=== PATIENT | female | born 1975 | race Caucasian/White ===

== ENCOUNTER 2016-06-13 17:54 | Inpatient (IN) | payer OTHER ==
[2016-06-13 19:14] LABS: BASO % 0.6 % (0.0-2.0); EOS # 0.1 K/uL (0.0-0.7); EOS % 1.8 % (0.0-4.0); LYMPH # 1.6 K/uL (1.0-4.3); LYMPH % 25.9 % (20.0-40.0); MEAN CORPUSCULAR HEMOGLOBIN 21.6 pg (27.0-31.0); MEAN CORPUSCULAR HGB CONC 30.9 g/dL (33.0-37.0); MEAN PLATELET VOLUME 8.3 fl (7.2-11.7); MONO # 0.5 K/uL (0.0-0.8); MONO % 8.2 % (0.0-10.0); NEUT # 3.8 K/uL (1.8-7.0); NEUT % 63.5 % (50.0-75.0); RED CELL DISTRIBUTION WIDTH 16.2 % (11.5-14.5)
[2016-06-13 19:29] LABS: PARTIAL THROMBOPLASTIN TIME 25.3 SECONDS (23.3-32.5)
[2016-06-13 19:30] LABS: ALKALINE PHOSPHATASE 82 U/L (38-126); ALT/SGPT 39 U/L (9-52); AST/SGOT 32 U/L (14-36); BILIRUBIN,TOTAL 0.4 mg/dl (0.2-1.3); BLOOD UREA NITROGEN 9 mg/dl (7-17); CALCIUM 9.4 mg/dL (8.4-10.2); CARBON DIOXIDE 23 mmol/L (22-30); CHLORIDE 106 mmol/L (98-107); CHOLESTEROL 130 mg/dL (0-199); GFR AFRICAN-AMERICAN > 60; GLUCOSE,RANDOM 96 mg/dL (65-105); POTASSIUM 4.1 MMOL/L (3.6-5.0); SODIUM 142 mmol/l (132-148); TOTAL PROTEIN 7.9 G/DL (6.3-8.2)
--- NOTE | 2016-06-13 20:07 | ED PDOC ---
HPI: Headache Time Seen by Provider: 06/13/16 18:14 Chief Complaint (Nursing): Weakness/Neurological Deficit Chief Complaint (Provider): Headache, weakness History Per: Patient History/Exam Limitations: no limitations Onset/Duration Of Symptoms: Days Current Symptoms Are (Timing): Still Present Severity: Moderate Quality: "Pain" Associated Symptoms: Extremity Weakness Additional History Per: Patient Additional Complaint(s): The pt is a 41yo female with PMHx of C-Sections, presents to the ED for evaluation of right sided headache, mostly present behind her right eye since last night. Pt reports associated numbness to face, pain in right forearm and tingling in all four extremities. Pt denies any visual changes, neck stiffness, loss of consciousness. At present, she offers no additional medical complaints. NIHSS Stroke Scale - Date/Time Evaluation Performed Date Performed: 06/13/16 Time Performed: 18:50 When Was NIHSS Performed: Baseline - How Severe is the Stroke Level of Consciousness: 0=Alert LOC to Questions: 0=Both comments correct LOC to commands: 0=Obeys both correctly Best Gaze: 0=Normal Visual: 0=No visual loss Facial: 0=Normal Motor Arm - Left: 0=No drift Motor Arm - Right: 0=No drift Motor Leg - Left: 0=No drift Motor Leg - Right: 0=No drift Limb Ataxia: 0=Absent Sensory: 1=Mild to moderate loss Best Language: 0=No aphasia Dysarthia: 0=Normal articulation Extinction & Inattention (Neglect): 0=Normal, no object Score: 1 Past Medical History Reviewed: Historical Data, Nursing Documentation, Vital Signs Vital Signs: Last Vital Signs Temp 99.8 F H 06/13/16 18:05 Pulse 88 06/13/16 18:05 Resp 20 06/13/16 18:05 BP 162/99 H 06/13/16 18:05 Pulse Ox 99 06/13/16 18:05 - Medical History PMH: No Chronic Diseases, Gastritis Denies: Chronic Kidney Disease - Family History Family History: States: Unknown Family Hx - Living Arrangements Living Arrangements: With Family - Social History Current smoker - smoking cessation education provided: No Alcohol: None Drugs: Denies - Home Medications Home Medications: Ambulatory Orders Medication Instructions Recorded Omeprazole 40 mg PO DAILY 11/02/15 Naproxen [Naprosyn] 500 mg PO Q12H #20 tab 11/14/15 - Allergies Allergies/Adverse Reactions: Allergies Allergy/AdvReac Type Severity Reaction Status Date / Time morphine Allergy SHORTNESS Verified 11/01/15 18:02 OF BREATH Review of Systems ROS Statement: Except As Marked, All Systems Reviewed And Found Negative Eyes: Negative for: Vision Change ENT: Positive for: Other (numbness to face, no neck stiffness) Neurological: Positive for: Weakness, Headache, Other (tingling all 4 extremities, no LOC) Physical Exam - Reviewed Nursing Documentation Reviewed: Yes Vital Signs Reviewed: Yes - Physical Exam Appears: Positive for: Well, Non-toxic, No Acute Distress Head Exam: Positive for: ATRAUMATIC, NORMAL INSPECTION, NORMOCEPHALIC Skin: Positive for: Normal Color, Warm, DRY Eye Exam: Positive for: Normal appearance, EOMI, PERRL Neck: Positive for: Normal, Supple Cardiovascular/Chest: Positive for: Regular Rate, Rhythm Respiratory: Positive for: Normal Breath Sounds. Negative for: Respiratory Distress Gastrointestinal/Abdominal: Positive for: Normal Exam Extremity: Positive for: Other (muscle strength 4/5 in distal right upper extremity) Neurologic/Psych: Positive for: Alert, Oriented, Other (decreased sensation right side of face. tongue midline). Negative for: Facial Droop - Laboratory Results Result Diagrams: 06/13/16 19:00 06/13/16 19:00 - ECG O2 Sat by Pulse Oximetry: 99 (RA) Pulse Ox Interpretation: Normal Medical Decision Making Medical Decision Making: Time: 1829 Impression: Atypical migraine, headache, CVA paresthesias Plan: -- CT Head -- Bloodwork -- CXR --Reassess Scribe Attestation: Documented by Eneida Frank acting as a scribe for Maryam Varghese MD. Provider Attestation: All medical record entries made by the Scribe were at my direction and personally dictated by me. I have reviewed the chart and agree that the record accurately reflects my personal performance of the history, physical exam, medical decision making, and the department course for this patient. I have also personally directed, reviewed, and agree with the discharge instructions and disposition. Disposition - Clinical Impression Clinical Impression: CVA (cerebral vascular accident) - Patient ED Disposition Is Patient to be Admitted: Yes - Disposition Disposition Time: 21:43 Condition: STABLE - Pt Status Changed To: Hospital Disposition Of: Inpatient - Admit Certification Admit to Inpatient:: After my assessment, the patient will require hospitalization for at least two midnights. This is because of the severity of symptoms shown, intensity of services needed, and/or the medical risk in this patient being treated as an outpatient. - POA Present On Arrival: None rTPA Inclusion/Exclusion - Refusal of Treatment Patient Refused Treatment: No - Inclusion Criteria for Altepase Patient is 18 years or Older: Yes Clinical DX Ischemic Stroke Cause Neurological Deficit: No Time of Onset Established Less Than 270 Mins Before TX Begin: No Risk/Benefit Discussed With Patient/Family Member Present: No
--- NOTE | 2016-06-13 21:20 | CT ---
EXAM: CT Head Without Intravenous Contrast CLINICAL HISTORY: 41 years old, female; Pain; Headache; Tension; Additional info: R sided RICHARD, r distal arm weakness, paresthesias TECHNIQUE: Axial computed tomography images of the head/brain without intravenous contrast. This CT exam was performed using one or more of the following dose reduction techniques: automated exposure control, adjustment of the mA and/or kV according to patient size, and/or use of iterative reconstruction technique. Coronal and sagittal reformatted images were created and reviewed. COMPARISON: CT - HEAD W/O CONTRAST 01/06/2015 10:53:53 PM FINDINGS: Brain: No intracranial hemorrhage. No mass. No definite edema. Ventricles: No hydrocephalus. Bones/joints: No acute fracture. Soft tissues: Unremarkable. Sinuses: No acute sinusitis. Mastoid air cells: No mastoid effusion. Orbits: Unremarkable as visualized. IMPRESSION: 1. No definite acute intracranial abnormality. Acute infarction may be CT occult within first 24 hours. If a focal deficit persists, consider followup CT or MRI for further evaluation. 2. Incidental/non-acute findings are described above.
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
[2016-06-14 00:30] LABS: THYROID STIMULATING HORMONE 2.68 mIU/ML (0.46-4.68)
--- NOTE | 2016-06-14 07:37 | CARD ---
APPROVED REPORT EKG Measurement Heart [id number] <Conclusion> Normal sinus rhythm Normal ECG
[2016-06-14] MEDS: Enoxaparin 40 mg Syringe SC SCH (08:07)
--- NOTE | 2016-06-14 08:53 | RAD ---
HISTORY: Headache. Portable study 19:05. COMPARISON: 03/15/2014. FINDINGS: LUNGS: No active pulmonary disease. PLEURA: No significant pleural effusion identified, no pneumothorax apparent. CARDIOVASCULAR: Normal. OSSEOUS STRUCTURES: No significant abnormalities. VISUALIZED UPPER ABDOMEN: Normal. OTHER FINDINGS: None. IMPRESSION: No active disease. No significant interval change compared to the prior examination(s).
--- NOTE | 2016-06-14 11:19 | CP.PCM.PN ---
Subjective - Date & Time of Evaluation Date of Evaluation: 06/14/16 Time of Evaluation: 07:35 - Subjective Subjective: The patient is a 41 y/o woman w/ no PMH, presented with right sided headache, mostly present behind her right eye since last night prior to admission. The patient was seen this morning. There are no acute events overnight. The patient is not in acute distress. The patient reports that she feels much better compared to yesterday. The patient states she has no headache currently ; however, she still has mild paresthesia of the right face and some right- sided weakness. The patient reports that her strength is better as well. The patient denies dizziness, chest pain, dyspnea, abdominal pain, nausea, vomiting , diarrhea, dysuria, and fevers. Patient reports her last period was 05/18/2016 , is regular at every 4 weeks, lasts 4 days, bleeds for the first 2 days and no heavy bleeding. In addition, the patient reports that her mother had cervical cancer in her 30s but has been cured of it. Objective - Vital Signs/Intake and Output Vital Signs (last 24 hours): Temp Pulse Resp BP Pulse Ox 98.2 F 74 20 121/78 99 06/14/16 08:18 06/14/16 09:00 06/14/16 08:18 06/14/16 08:18 06/14/16 08:18 - Medications Medications: Current Medications Acetaminophen (Tylenol 325mg Tab) 650 mg PO Q6 PRN PRN Reason: Headache Atorvastatin Calcium (Lipitor) 40 mg PO DAILY [facility] Last Admin: 06/14/16 08:07 Dose: 40 mg Enoxaparin Sodium (Lovenox) 40 mg SC DAILY [facility] PRN Reason: Protocol Last Admin: 06/14/16 08:07 Dose: 40 mg - Labs Labs: PT 11.3 SECONDS (9.6-11.2) H 06/13/16 19:00 INR 1.09 (0.92-1.08) H 06/13/16 19:00 APTT 25.3 SECONDS (23.3-32.5) 06/13/16 19:00 - Constitutional Appears: No Acute Distress - Head Exam Head Exam: ATRAUMATIC, NORMOCEPHALIC - Eye Exam Eye Exam: EOMI Pupil Exam: PERRL - ENT Exam ENT Exam: Mucous Membranes Moist - Respiratory Exam Respiratory Exam: Clear to Ausculation Bilateral. absent: Accessory Muscle Use , Chest Wall Tenderness, Decreased Breath Sounds, Prolonged Expiratory Phase, Rales, Rhonchi, Wheezes, Respiratory Distress, Stridor - Cardiovascular Exam Cardiovascular Exam: REGULAR RHYTHM. absent: Tachycardia - GI/Abdominal Exam GI & Abdominal Exam: Soft, Normal Bowel Sounds. absent: Distended, Tenderness - Extremities Exam Extremities Exam: absent: Calf Tenderness, Tenderness - Neurological Exam Neurological Exam: Alert, Awake, CN II-XII Intact, Oriented x3 Neuro motor strength exam: Left Upper Extremity: 5, Right Upper Extremity: 4, Left Lower Extremity: 5, Right Lower Extremity: 4 Additional comments: Mild paresthesia of the right face from maxillary to mandibular area Negative Romberg Steady, smooth, uninterrupted, unassisted gait - Skin Skin Exam: Dry, Intact, Normal Color, Warm Assessment and Plan - Assessment and Plan (Free Text) Assessment: The patient is a 41 y/o woman w/ no PMH, presented with right sided headache, mostly present behind her right eye since last night prior to admission Plan: 1. Right Sided Headache - atypical migraine vs. CVA vs. MS - PE: patient has right sided facial parasthesias and right UE weakness - ED Course: CT Head, CBC, CMP, coags, Lipid panel, Troponins, CXR - CT head: no acute intracranial abnormality - Aspirin 325 mg PO, statin per stroke protocol - Tylenol 650 mg PO Q6h prn for headache - Swallow screen passed - Neuro consulted: Dr Fallon - Neuro checks Q8h - PT/OT ordered - TSH: 2.68 - Vit B12: 371 - Follow up Folate, RPR to rule out other neurological causes - Follow up MRI brain w/wo contrast 2. Anemia - most likely secondary to iron deficiency - Hb 9.9 - microcytic, hypochromic, with increased RDW - patient has regular periods and no menorrhagia - follow up iron, TIBC, ferritin, trasnferrin - follow up stool occult blood 3. Prophylaxis - DVT: lovenox 40 mg SC daily
[2016-06-14] MEDS ORDERED: Gadodiamide 287 MG/ML VIAL (15ML) IV ONE (14:48)
--- NOTE | 2016-06-14 16:24 | MRI ---
PROCEDURE: MRI BRAIN WITH AND WITHOUT CONTRAST HISTORY: Right sided headache/R side numbness/weakness COMPARISON: Noncontrast head CT from 06/13/2016 TECHNIQUE: Multiplanar, multisequence MR images of the brain were obtained with and without intravenous contrast enhancement. 13 cc Omniscan was injected intravenously. FINDINGS: HEMORRHAGE: None DWI: No evidence of an acute or early subacute infarction. BRAIN PARENCHYMA: There are tiny scattered T2/FLAIR hyperintense foci in the subcortical supratentorial white matter. Maurice-white matter differentiation is preserved. There is no mass, mass effect or abnormal extra-axial fluid collection. There is a partially empty sella. Otherwise, the midline sagittal structures are normal. ENHANCEMENT: No abnormal parenchymal or leptomeningeal enhancement. VENTRICLES: The ventricles are normal in size, shape and configuration.. CRANIUM: There is normal bone marrow signal pattern. ORBITS: Grossly unremarkable. PARANASAL SINUSES/MASTOIDS: Clear VASCULAR SYSTEM: There are normal signal voids in the larger intracranial arteries. OTHER FINDINGS: None . IMPRESSION: 1. No acute intracranial abnormality. Specifically, no evidence of acute infarction or active demyelination. 2. Minimal supratentorial subcortical white matter changes are strictly nonspecific, the differential considerations include migraine headache effect, gliosis, vasculitis, Lyme disease and demyelinating disease including multiple sclerosis. Clinical follow-up is advised.
[2016-06-14 16:59] LABS: FOLATE 11.8 ng/mL
[2016-06-15 00:09] VITALS: RESP 20
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
[2016-06-15 07:24] LABS: HEMATOCRIT 31.3 % (34.0-47.0); MEAN CELL VOLUME 69.3 fl (81.0-99.0); MEAN CORPUSCULAR HEMOGLOBIN 22.1 pg (27.0-31.0); MEAN CORPUSCULAR HGB CONC 31.9 g/dL (33.0-37.0); RED CELL DISTRIBUTION WIDTH 16.2 % (11.5-14.5)
[2016-06-15 07:58] VITALS: BP 106/71; PULSE 77; TEMP 98.5; O2SAT 99
[2016-06-15 08:26] LABS: IRON 90 ug/dL (37-170)
--- NOTE | 2016-06-15 08:43 | CP.PCM.PN ---
Subjective - Date & Time of Evaluation Date of Evaluation: 06/15/16 Time of Evaluation: 08:00 - Subjective Subjective: The patient is a 41 y/o woman w/ no PMH, presented with right sided headache, mostly present behind her right eye since last night prior to admission. The patient was seen this morning. There are no acute events overnight. The patient is not in acute distress. The patient reports that she feels even better compared to yesterday. The patient states she has no headache currently. The patient reported mild nausea and headache after the MRI which resolved shortly on its own. The patient reports that her strength continues to improve as well. The patient denies dizziness, chest pain, dyspnea, abdominal pain, nausea, vomiting, diarrhea, dysuria, and fevers. The patient was seen by physical therapy yesterday. The patient states that she can ambulate normally but is taking it slow. Objective - Vital Signs/Intake and Output Vital Signs (last 24 hours): Temp Pulse Resp BP Pulse Ox 98.5 F 77 20 106/71 99 06/15/16 07:57 06/15/16 07:57 06/15/16 07:57 06/15/16 07:57 06/15/16 07:57 - Medications Medications: Current Medications Acetaminophen (Tylenol 325mg Tab) 650 mg PO Q6 PRN PRN Reason: Headache Atorvastatin Calcium (Lipitor) 40 mg PO DAILY [facility] Last Admin: 06/14/16 08:07 Dose: 40 mg Cholecalciferol (Vitamin D) 2,000 iu PO DAILY [facility] Enoxaparin Sodium (Lovenox) 40 mg SC DAILY [facility] PRN Reason: Protocol Last Admin: 06/14/16 08:07 Dose: 40 mg - Labs Labs: 06/15/16 05:00 PT 11.3 SECONDS (9.6-11.2) H 06/13/16 19:00 INR 1.09 (0.92-1.08) H 06/13/16 19:00 APTT 25.3 SECONDS (23.3-32.5) 06/13/16 19:00 - Constitutional Appears: No Acute Distress - Head Exam Head Exam: ATRAUMATIC, NORMOCEPHALIC - Eye Exam Eye Exam: EOMI Pupil Exam: PERRL - ENT Exam ENT Exam: Mucous Membranes Moist - Respiratory Exam Respiratory Exam: Clear to Ausculation Bilateral. absent: Accessory Muscle Use , Chest Wall Tenderness, Decreased Breath Sounds, Prolonged Expiratory Phase, Rales, Rhonchi, Wheezes, Respiratory Distress, Stridor - Cardiovascular Exam Cardiovascular Exam: REGULAR RHYTHM. absent: Tachycardia - GI/Abdominal Exam GI & Abdominal Exam: Soft, Normal Bowel Sounds. absent: Distended, Tenderness - Extremities Exam Extremities Exam: absent: Calf Tenderness, Tenderness - Neurological Exam Neurological Exam: Alert, Awake, Oriented x3 Neuro motor strength exam: Left Upper Extremity: 5, Right Upper Extremity: 5, Left Lower Extremity: 5, Right Lower Extremity: 5 Additional comments: muscle strength +5 bilaterally sensation to face equal bilaterally - Skin Skin Exam: Dry, Intact, Normal Color, Warm Assessment and Plan - Assessment and Plan (Free Text) Assessment: The patient is a 41 y/o woman w/ no PMH, presented with right sided headache, mostly present behind her right eye since last night prior to admission Plan: 1. Right Sided Headache - atypical migraine vs. CVA vs. MS - PE: patient has right sided facial parasthesias and right UE weakness - ED Course: CT Head, CBC, CMP, coags, Lipid panel, Troponins, CXR - CT head: no acute intracranial abnormality - MRI brain w/wo contrast: no acute disease processes; minimal supratentorial subcortical white matter changes nonspecific, differentials include migraine headache effect, gliosis, vasculitis, Lyme disease and demyelinating disease including multiple sclerosis - Aspirin 325 mg PO, statin per stroke protocol - Tylenol 650 mg PO Q6h prn for headache - Swallow screen passed - Neuro consulted: Dr Fallon - Neuro checks Q8h - seen by PT yesterday - TSH: 2.68 - Vit B12: 371 - Folate: 11.8 - RPR: negative 2. Anemia - most likely secondary to iron deficiency - Hb 10.0 - microcytic, hypochromic, with increased RDW - patient has regular periods and no menorrhagia - iron: 90 - TIBC: 385 - ferritin: 5.3 - transferrin: 23% - follow up stool occult blood 3. Prophylaxis - DVT: lovenox 40 mg SC daily
[2016-06-15] MEDS: Enoxaparin 40 mg Syringe SC SCH (09:05)
[2016-06-15 09:29] LABS: URINE BILIRUBIN NEGATIVE (NEGATIVE); URINE BLOOD NEGATIVE (NEGATIVE); URINE COLOR YELLOW (YELLOW); URINE GLUCOSE (UA) NEG (Normal); URINE KETONE NEGATIVE (NEGATIVE); URINE LEUKOCYTE ESTERASE NEG Leu/uL (Negative); URINE PROTEIN NEGATIVE (NEGATIVE); URINE UROBILINOGEN 0.2-1.0 mg/dL (0.2-1.0)
--- NOTE | 2016-06-15 10:37 | CP.PCM.DIS ---
Provider - Provider Date of Admission: 06/13/16 21:42 Attending physician: Matilda Palmer MD Time Spent in preparation of Discharge (in minutes): 30 Diagnosis - Discharge Diagnosis (1) Migraine headache Status: Acute (2) Facial paresthesia Status: Acute (3) Intermittent paresthesia of right hand and foot Status: Acute Hospital Course - Lab Results Lab Results: Most Recent Lab Values WBC 6.0 K/uL (4.8-10.8) 06/15/16 05:00 RBC 4.51 Mil/uL (3.80-5.20) 06/15/16 05:00 Hgb 10.0 g/dL (12.0-16.0) L 06/15/16 05:00 Hct 31.3 % (34.0-47.0) L 06/15/16 05:00 MCV 69.3 fl (81.0-99.0) L 06/15/16 05:00 MCH 22.1 pg (27.0-31.0) L 06/15/16 05:00 MCHC 31.9 g/dL (33.0-37.0) L 06/15/16 05:00 RDW 16.2 % (11.5-14.5) H 06/15/16 05:00 Plt Count 263 K/uL (130-400) 06/15/16 05:00 MPV 8.3 fl (7.2-11.7) 06/13/16 19:00 Neut % (Auto) 63.5 % (50.0-75.0) 06/13/16 19:00 Lymph % (Auto) 25.9 % (20.0-40.0) 06/13/16 19:00 [place] % (Auto) 8.2 % (0.0-10.0) 06/13/16 19:00 Eos % (Auto) 1.8 % (0.0-4.0) 06/13/16 19:00 Baso % (Auto) 0.6 % (0.0-2.0) 06/13/16 19:00 Neut # 3.8 K/uL (1.8-7.0) 06/13/16 19:00 Lymph # 1.6 K/uL (1.0-4.3) 06/13/16 19:00 [place] # 0.5 K/uL (0.0-0.8) 06/13/16 19:00 Eos # 0.1 K/uL (0.0-0.7) 06/13/16 19:00 Baso # 0.0 K/uL (0.0-0.2) 06/13/16 19:00 PT 11.3 SECONDS (9.6-11.2) H 06/13/16 19:00 INR 1.09 (0.92-1.08) H 06/13/16 19:00 APTT 25.3 SECONDS (23.3-32.5) 06/13/16 19:00 Sodium 142 mmol/l (132-148) 06/13/16 19:00 Potassium 4.1 MMOL/L (3.6-5.0) 06/13/16 19:00 Chloride 106 mmol/L (98-107) 06/13/16 19:00 Carbon Dioxide 23 mmol/L (22-30) 06/13/16 19:00 Anion Gap 17 (10-20) 06/13/16 19:00 BUN 9 mg/dl (7-17) 06/13/16 19:00 Creatinine 0.6 mg/dL (0.7-1.2) L 06/13/16 19:00 Est GFR ( Amer) > 60 06/13/16 19:00 Est GFR (Non-Af Amer) > 60 06/13/16 19:00 Random Glucose 96 mg/dL (65-105) 06/13/16 19:00 Hemoglobin A1c 6.6 % (4.2-6.5) H 06/13/16 19:00 Calcium 9.4 mg/dL (8.4-10.2) 06/13/16 19:00 Iron 90 ug/dL (37-170) 06/15/16 05:00 TIBC 385 ug/dL (250-450) 06/15/16 05:00 % Saturation 23 % (20-55) 06/15/16 05:00 Ferritin 5.3 ng/mL 06/15/16 05:00 Total Bilirubin 0.4 mg/dl (0.2-1.3) 06/13/16 19:00 AST 32 U/L (14-36) 06/13/16 19:00 ALT 39 U/L (9-52) 06/13/16 19:00 Alkaline Phosphatase 82 U/L (38-126) 06/13/16 19:00 Troponin I < 0.0120 ng/mL (0.00-0.120) 06/13/16 19:00 Total Protein 7.9 G/DL (6.3-8.2) 06/13/16 19:00 Albumin 4.0 g/dL (3.5-5.0) 06/13/16 19:00 Globulin 3.9 gm/dL (2.2-3.9) 06/13/16 19:00 Albumin/Globulin Ratio 1.0 (1.0-2.1) 06/13/16 19:00 Triglycerides 71 mg/DL (0-149) 06/13/16 19:00 Cholesterol 130 mg/dL (0-199) 06/13/16 19:00 LDL Cholesterol Direct 55 mg/dL (0-129) 06/13/16 19:00 HDL Cholesterol 57 MG/DL (30-70) 06/13/16 19:00 Vitamin B12 371 pg/mL (239-931) 06/13/16 23:16 25-OH Vitamin D Total 16.2 NG/ML (30.0-100.0) L 06/14/16 11:40 Folate 11.8 ng/mL 06/13/16 23:16 TSH 3rd Generation 2.68 mIU/ML (0.46-4.68) 06/13/16 23:16 Urine Color Yellow (YELLOW) 06/15/16 05:30 Urine Clarity Clear (Clear) 06/15/16 05:30 Urine pH 6.0 (5.0-8.0) 06/15/16 05:30 Ur Specific [place] 1.010 (1.003-1.030) 06/15/16 05:30 Urine Protein Negative mg/dL (NEGATIVE) 06/15/16 05:30 Urine Glucose (UA) Neg mg/dL (Normal) 06/15/16 05:30 Urine Ketones Negative mg/dL (NEGATIVE) 06/15/16 05:30 Urine Blood Negative (NEGATIVE) 06/15/16 05:30 Urine Nitrate Negative (NEGATIVE) 06/15/16 05:30 Urine Bilirubin Negative (NEGATIVE) 06/15/16 05:30 Urine Urobilinogen 0.2-1.0 mg/dL (0.2-1.0) 06/15/16 05:30 Ur Leukocyte Esterase Neg Tory/uL (Negative) 06/15/16 05:30 Ur Squamous Epith Cells < 1 /hpf (0-5) 06/15/16 05:30 RPR Nonreactive (NONREACTIVE) 06/13/16 23:16 Blood Type O POSITIVE 06/13/16 19:00 Antibody Screen Negative 06/13/16 19:00 BBK History Checked No verified bt 06/13/16 19:00 - Hospital Course Hospital Course: The patient is a 41 y/o woman w/ no PMH, presented with right sided headache, mostly present behind her right eye since last night prior to admission. The patient was seen in the ED and given aspirin and head CT without contrast for possible CVA. The initial neuro exam showed decreased strength of the right upper and lower extremity with paresthesia of the right face. The patient reported similar headache 1 year ago but this episode had paresthesia and weakness. The head CT showed no acute abnormalities or disease processes. The CBC showed microcytic, hypochromic anemia. Iron studies consistent with iron deficiency due to low ferritin. The urinalysis, CMP, Vitamin B12, Folate, TSH, lipid panel were WNL, troponin negative, but Vit D was low at 16.2 and HbA1c 6.6 %. The patient was found to be negative for syphilis. The patient continued to complain of right sided weakness and paresthesia of the right face; however was improved the following morning. The patient had a MRI brain w/wo contrast that showed no acute disease processes; minimal supratentorial subcortical nonspecific white matter changes. The patient was given supplemental Vit D and Vit B12. On the day of discharge, the paresthesia and weakness have resolved. The patient is able to ambulate independently in a slow, smooth, uninterrupted manner. The patient is improved clinically. The patient has been seen, examined, and deemed medically fit with no contraindication for discharge home. The patient is to begin taking OTC multivitamin to maintain iron and Vit B12 levels. Discharge Exam - Head Exam Head Exam: ATRAUMATIC, NORMOCEPHALIC - Eye Exam Eye Exam: EOMI Pupil Exam: PERRL - ENT Exam ENT Exam: Mucous Membranes Moist - Respiratory Exam Respiratory Exam: Clear to PA & Lateral, NORMAL BREATHING PATTERN. absent: Accessory Muscle Use, Chest Wall Tenderness, Decreased Breath Sounds, Prolonged Expiratory Phase, Rales, Rhonchi, Wheezes, Respiratory Distress, Stridor - Cardiovascular Exam Cardiovascular Exam: REGULAR RHYTHM. absent: Tachycardia - GI/Abdominal Exam GI & Abdominal Exam: Normal Bowel Sounds, Soft. absent: Distended, Tenderness - Extremities Exam Extremities exam: normal inspection - Neurological Exam Neurological exam: Alert, CN II-XII Intact, Normal Gait, Oriented x3 Additional comments: sensation to touch on face equal bilaterally, muscle strength +5 bilateral upper and lower extremities - Skin Skin Exam: Dry, Intact, Normal Color, Warm Discharge Plan - Follow Up Plan Condition: GOOD Disposition: HOME/ ROUTINE Additional Instructions: please start taking OTC multivitamin to maintain iron, Vitamin D, and Vitmain B12 levels. please follow up with [facility] on June 24, 2016 @ 13:[address] Thompson Referrals: [facility] [Outside] Kate Matthews MD [Resident] -
--- NOTE | 2016-06-17 07:27 | PQF GENQUE ---
Dr. Palmer consult dated 06/15 documents rhabdomyolysis but this is not mentioned in discharge summary. Was the pt above diagnosed with rhabdomyolysis? This form is a permanent part of the medical record Clarification of your documentation is requested to better reflect the severity of illness and intensity of treatment of your patient. Indicators present [] Specify: [] [] Specify: [] [] Specify: [] [] Specify: [] Location in the medical record that reflects the above clinical findings: [] Treatment Provided: [] PHYSICIAN'S RESPONSE Dr Fallon wrote Rhabdo I did not write that. Pt does not have rhabdo. Please reach out to him for furhter clarification. thanks Based on your medical judgment of the clinical indicators outlined above please clarify the following: [] Practitioner response [] If unable to determine, please check the box, sign and date. Present On Admission (POA) Indicator: [] Present at the time of admission [] Not present at the time of admission [] Clinically Undetermined In responding to this query, please exercise your independent professional judgment. The fact that a question is asked does not imply that any particular answer is desired or expected. Thank you for your clarification on this documentation. If you have any questions please call:[ ] * Thank you, [ ]Kassi Bautista awning installer PEREZ
== END 2016-06-15 14:49 | disposition home or self-care (01) | DRG 891 ==
LOC: H.ER 17:54 → H.ERHOLD 21:42 → H.TEL 23:26
PROVIDERS: ADMIT Family Medicine Geriatric Medicine; ATTEND Family Medicine Geriatric Medicine
DX: G43.009 Migraine without aura, not intractable, without status migrainosus (principal); D50.9 Iron deficiency anemia, unspecified; R20.9 Unspecified disturbances of skin sensation; R53.1 Weakness; Z88.5 Allergy status to narcotic agent; K29.70 Gastritis, unspecified, without bleeding; R74.0 Nonspecific elevation of levels of transaminase and lactic acid dehydrogenase [LDH]

== ENCOUNTER 2017-01-14 21:56 | Emergency (ER) | payer OTHER ==
[2017-01-14 22:12] VITALS: BP 152/96; PULSE 93; RESP 16; TEMP 101.6; O2SAT 98
[2017-01-14] MEDS ORDERED: Dexamethasone 10 MG in Sodium Chloride 0.9% 50 ML IV STA (22:28)
[2017-01-14] MEDS ORDERED: Sodium Chloride 0.9% 1,000 ML IV STA (22:29)
[2017-01-14 22:44] LABS: BASO % 0.3 % (0.0-2.0); EOS # 0.2 K/uL (0.0-0.7); EOS % 1.6 % (0.0-4.0); HEMATOCRIT 35.4 % (34.0-47.0); LYMPH # 1.6 K/uL (1.0-4.3); LYMPH % 15.7 % (20.0-40.0); MEAN CELL VOLUME 79.1 fl (81.0-99.0); MEAN CORPUSCULAR HEMOGLOBIN 25.5 pg (27.0-31.0); MEAN CORPUSCULAR HGB CONC 32.2 g/dL (33.0-37.0); MEAN PLATELET VOLUME 8.4 fl (7.2-11.7); MONO # 0.7 K/uL (0.0-0.8); MONO % 6.8 % (0.0-10.0); NEUT # 7.8 K/uL (1.8-7.0); NEUT % 75.6 % (50.0-75.0); NRBC % 0.1 % (0.0-0.0); RED CELL DISTRIBUTION WIDTH 15.7 % (11.5-14.5)
[2017-01-14 22:46] LABS: WHITE BLOOD COUNT 10.4 K/uL (4.8-10.8)
[2017-01-14 22:55] LABS: ALB/GLOB RATIO 1.1 (1.0-2.1); ALKALINE PHOSPHATASE 72 U/L (38-126); ALT/SGPT 57 U/L (9-52); AST/SGOT 33 U/L (14-36); BILIRUBIN,TOTAL 0.6 mg/dl (0.2-1.3); BLOOD UREA NITROGEN 7 mg/dl (7-17); CALCIUM 8.7 mg/dL (8.4-10.2); CARBON DIOXIDE 27 mmol/L (22-30); CHLORIDE 105 mmol/L (98-107); GFR AFRICAN-AMERICAN > 60; GLUCOSE,RANDOM 102 mg/dL (65-105); POTASSIUM 3.6 MMOL/L (3.6-5.0); SODIUM 141 mmol/l (132-148)
--- NOTE | 2017-01-14 23:05 | ED PDOC ---
HPI: Abdomen Time Seen by Provider: 01/14/17 22:17 Chief Complaint (Nursing): Abdominal Pain Chief Complaint (Provider): Sore throat History Per: Patient History/Exam Limitations: no limitations Onset/Duration Of Symptoms: Days (2) Additional Complaint(s): Patient is a 41 y/o female with a past medical history of rhabdomyolysis and gastritis presenting to the emergency department for worsening sore throat and diarrhea ongoing for two days with associated dry cough, congestion, and difficulty swallowing. Reports that when she is able to swallow small amounts of fluids, she develops diarrhea. Also notes chills and a possible fever. Denies vomiting or other complaints. PCP: none provided. Past Medical History Reviewed: Historical Data, Nursing Documentation, Vital Signs Vital Signs: Last Vital Signs Temp 101.6 F H 01/14/17 22:10 Pulse 93 H 01/14/17 22:10 Resp 16 01/14/17 22:10 BP 152/96 H 01/14/17 22:10 Pulse Ox 98 01/15/17 01:22 - Medical History PMH: Gastritis Denies: Chronic Kidney Disease Other PMH: rhabdomyolysis - Surgical History Surgical History: No Surg Hx - Family History Family History: States: Unknown Family Hx - Social History Current smoker - smoking cessation education provided: No Ex-Smoker (has not smoked in the last 12 months): No Alcohol: None Drugs: Denies - Home Medications Home Medications: Ambulatory Orders Medication Instructions Recorded Cholecalciferol [Vitamin D 1000 IU] 2,000 iu PO DAILY tab 06/15/16 Dicyclomine [Bentyl] 20 mg PO Q12 PRN #20 tab 01/15/17 - Allergies Allergies/Adverse Reactions: Allergies Allergy/AdvReac Type Severity Reaction Status Date / Time morphine Allergy SHORTNESS Verified 11/01/15 18:02 OF BREATH Review of Systems ROS Statement: Except As Marked, All Systems Reviewed And Found Negative Constitutional: Positive for: Fever (possible), Chills ENT: Positive for: Nose Congestion, Throat Pain (sore throat), Other ( difficulty swallowing) Respiratory: Positive for: Cough (dry) Gastrointestinal: Positive for: Diarrhea. Negative for: Vomiting Physical Exam - Reviewed Nursing Documentation Reviewed: Yes Vital Signs Reviewed: Yes - Physical Exam Appears: Positive for: Well, Non-toxic, No Acute Distress Head Exam: Positive for: ATRAUMATIC, NORMAL INSPECTION, NORMOCEPHALIC Skin: Positive for: Normal Color, Warm, Dry Eye Exam: Positive for: Normal appearance ENT: Positive for: Pharyngeal Erythema, Other (Dry mucous membranes). Negative for: Tonsillar Exudate Neck: Positive for: Normal Cardiovascular/Chest: Positive for: Regular Rate, Rhythm. Negative for: Murmur Respiratory: Positive for: Normal Breath Sounds. Negative for: Accessory Muscle Use, Respiratory Distress Gastrointestinal/Abdominal: Positive for: Normal Exam, Soft. Negative for: Tenderness Extremity: Positive for: Normal ROM. Negative for: Pedal Edema Lymphatic: Positive for: Adenopathy (bilateral anterior cervical) Neurologic/Psych: Positive for: Alert, Oriented (x3) - Laboratory Results Result Diagrams: 01/14/17 22:35 01/14/17 22:35 - ECG O2 Sat by Pulse Oximetry: 98 (RA) Pulse Ox Interpretation: Normal Medical Decision Making Medical Decision Making: Time: 22:24 Initial impression: Patient is a 41 y/o female with flu-like symptoms. Initial plan: ED Urine Dipstick Urine Dexamethasone Bentyl 20 mg PO Toradol 15 mg IVP Normal Saline 1 L IV Blood Culture Rapid Strep Group Reevaluation Reassess --00:21 -- Labs reviewed and revealed no clinically significant abnormalities --01:29 --Patient reports improvement of symptoms and is stable for discharge with prescription for Bentyl Scribe Attestation: Documented by Lois Obrien, acting as a scribe for Bird Hernandez MD. Provider Scribe Attestation: All medical record entries made by the Scribe were at my direction and personally dictated by me. I have reviewed the chart and agree that the record accurately reflects my personal performance of the history, physical exam, medical decision making, and the department course for this patient. I have also personally directed, reviewed, and agree with the discharge instructions and disposition. Disposition - Clinical Impression Clinical Impression: Pharyngitis - Patient ED Disposition Is Patient to be Admitted: No - Disposition Referrals: [facility] [Outside] Disposition: Routine/Home Disposition Time: 01:30 (Patient reports improvement of symptoms) Condition: STABLE Prescriptions: Dicyclomine [Bentyl] 20 mg PO Q12 PRN #20 tab PRN Reason: Diarrhea/Abdominal Pain Instructions: Pharyngitis (ED), Viral Syndrome (ED) Forms: [employer] (Latvian) Print Language: ESTONIAN
== END 2017-01-15 01:28 | disposition home or self-care (01) ==
LOC: H.ER 21:56
DX: J02.9 Acute pharyngitis, unspecified (principal); Z87.891 Personal history of nicotine dependence
CPT/HCPCS: 80053; 81025; 83605; 85025; 87040; 87070; 87430; 87804; 96374; 99282; J1100; J1885; J7040

== ENCOUNTER 2017-03-28 11:11 | Emergency (ER) | payer OTHER ==
[2017-03-28 12:10] VITALS: O2SAT 97
--- NOTE | 2017-03-28 13:12 | ED PDOC ---
HPI: CCC, URI, Sore Throat Time Seen by Provider: 03/28/17 12:38 Chief Complaint (Provider): Weakness History Per: Patient History/Exam Limitations: no limitations Additional Complaint(s): Pt reports generalized weakness, bodyaches, back pain, RICHARD and nonproductive cough since yesterday. Took Nyquil last night with some relief, nothing today. Denies paresthesias, focal weakness, nausea, vomiting, constipation, diarrhea. Past Medical History Reviewed: Nursing Documentation, Vital Signs Vital Signs: Last Vital Signs Temp 99.4 F 03/28/17 16:09 Pulse 80 03/28/17 16:09 Resp 18 03/28/17 16:09 BP 140/89 03/28/17 16:09 Pulse Ox 97 03/28/17 16:14 - Medical History PMH: Gastritis Denies: Chronic Kidney Disease - Family History Family History: States: Unknown Family Hx - Social History Current smoker - smoking cessation education provided: No Alcohol: None - Home Medications Home Medications: Ambulatory Orders Medication Instructions Recorded Cholecalciferol [Vitamin D 1000 IU] 2,000 iu PO DAILY tab 06/15/16 Dicyclomine [Bentyl] 20 mg PO Q12 PRN #20 tab 01/15/17 Naproxen [Naprosyn] 500 mg PO BID PRN #15 tablet 03/28/17 - Allergies Allergies/Adverse Reactions: Allergies Allergy/AdvReac Type Severity Reaction Status Date / Time morphine Allergy SHORTNESS Verified 11/01/15 18:02 OF BREATH Review of Systems Constitutional: Positive for: Weakness, Malaise. Negative for: Fever, Chills Eyes: Negative for: Vision Change ENT: Negative for: Nose Congestion, Throat Pain, Throat Swelling Cardiovascular: Negative for: Chest Pain, Palpitations Respiratory: Positive for: Cough. Negative for: Shortness of Breath, Pleuritic Pain, Sputum, Wheezing Gastrointestinal: Negative for: Nausea, Vomiting, Abdominal Pain, Diarrhea Genitourinary Female: Negative for: Dysuria, Hematuria Musculoskeletal: Positive for: Back Pain. Negative for: Neck Pain Skin: Negative for: Rash, Lesions Neurological: Positive for: Headache. Negative for: Weakness, Numbness, Incoordination, Change in Speech, Confusion, Seizures, Altered Mental Status, Dizziness Physical Exam - Reviewed Nursing Documentation Reviewed: Yes Vital Signs Reviewed: Yes - Physical Exam Appears: Positive for: Well, No Acute Distress Head Exam: Positive for: ATRAUMATIC, NORMAL INSPECTION Skin: Positive for: Normal Color, Warm, Dry Eye Exam: Positive for: Normal appearance, EOMI, PERRL ENT: Positive for: Pharynx Is (Clear) Neck: Positive for: Normal, Painless ROM, Supple Cardiovascular/Chest: Positive for: Regular Rate, Rhythm Respiratory: Positive for: Normal Breath Sounds. Negative for: Rales, Rhonchi, Wheezing Gastrointestinal/Abdominal: Positive for: Normal Exam, Bowel Sounds, Soft. Negative for: Tenderness Back: Positive for: Normal Inspection. Negative for: L CVA Tenderness, R CVA Tenderness Extremity: Positive for: Normal ROM Neurologic/Psych: Positive for: Alert, freight clerk II-XII, Oriented. Negative for: Motor/Sensory Deficits - ECG O2 Sat by Pulse Oximetry: 97 (RA) Pulse Ox Interpretation: Normal Medical Decision Making Medical Decision Makin yo female with myalgias, fever, cough and RICHARD. - Influenza A&B - urine - CXR - Motrin - Tylenol Time: 14:24 Chest X-Ray FINDINGS: LUNGS: Poor inspiration with low lung volumes, crowded bronchovascular markings and mild bibasilar atelectasis left greater than right. PLEURA: No significant pleural effusion identified. No pneumothorax apparent. CARDIOVASCULAR: Normal. OSSEOUS STRUCTURES: No significant abnormalities. VISUALIZED UPPER ABDOMEN: Normal. OTHER FINDINGS: None. IMPRESSION: Poor inspiration with low lung volumes, crowded bronchovascular markings and mild bibasilar atelectasis left greater than right. Disposition - Clinical Impression Clinical Impression: Viral syndrome - Disposition Referrals: [facility] [Outside] Disposition: Routine/Home Disposition Time: 15:35 Condition: IMPROVED Prescriptions: Naproxen [Naprosyn] 500 mg PO BID PRN #15 tablet PRN Reason: Pain, Moderate (4-7) Instructions: Viral Syndrome (ED) Forms: [employer] (Egyptian) Print Language: KINYARWANDA
--- NOTE | 2017-03-28 14:26 | RAD ---
HISTORY: Cough COMPARISON: Comparison chest 06/13/2016 TECHNIQUE: Chest PA and lateral FINDINGS: LUNGS: Poor inspiration with low lung volumes, crowded bronchovascular markings and mild bibasilar atelectasis left greater than right. PLEURA: No significant pleural effusion identified. No pneumothorax apparent. CARDIOVASCULAR: Normal. OSSEOUS STRUCTURES: No significant abnormalities. VISUALIZED UPPER ABDOMEN: Normal. OTHER FINDINGS: None. IMPRESSION: Poor inspiration with low lung volumes, crowded bronchovascular markings and mild bibasilar atelectasis left greater than right.
[2017-03-28 16:10] VITALS: BP 140/89; PULSE 80; RESP 18; TEMP 99.4
== END 2017-03-28 16:07 | disposition home or self-care (01) ==
LOC: H.ER 11:11
DX: B34.9 Viral infection, unspecified (principal)